=== PATIENT | male | born 1945 | race Caucasian/White ===

== ENCOUNTER 2017-04-03 14:09 | Outpatient (CLI) | payer BC ==
--- NOTE | 2017-04-03 15:31 | RAD ---
TWO VIEW CHEST SERIES: COMPARISON: 03/03/12. CLINICAL HISTORY: Preoperative assessment. FINDINGS: There is mild interstitial prominence of the right lower lung zone. No lobar consolidation, effusion , or discrete pneumothorax. Metallic anchors are present at the proximal right humerus. Partially i opal cervical spine operative change present. IMPRESSION: No acute process identified. POS: [facility]
[2017-04-03 15:57] LABS: #Eosinphils 0.1 thou/uL (0.0-0.7); #Lymphocytes 1.6 thou/uL (1.20-3.40); #Monocytes 0.5 thou/uL (0.11-0.59); #Neutrophils 3.5 thou/uL (1.40-6.50); %Basophils 0.8 % (0.0-1.0); %Eosinophils 1.3 % (0.0-10.0); %Lymphocytes 27.7 % (21.0-51.0); %Monocytes 8.6 % (0.0-10.0); %Neutrophils 61.6 % (42.0-75.0); Hemoglobin 13.9 g/dL (14.0-18.0); Mean Corpuscular HGB CONC 32.4 g/dL (32.0-36.0); Mean Corpuscular Hemoglobin 31.7 pg (27.0-31.0); Mean Corpuscular Volume 97.6 fl (80.0-94.0); Mean Platelet Volume 7.5 fL (7.4-10.4); Platelet Count 222 thou/uL (130-400); RBC Distribution Width 11.6 % (11.5-14.5); White Blood Cell (WBC) Count 5.6 thou/uL (4.8-10.8)
[2017-04-03 16:04] LABS: PTT 28.9 SEC (22.9-36.1); Prothrombin Time 12.9 SEC (12.0-14.7)
[2017-04-03 16:13] LABS: Bilirubin Negative (Negative); Blood, Urine Negative (Negative); Clarity CLEAR (Clear); Glucose, Urine (Dipstick) Negative (Negative); Leukocyte Negative (Negative); Nitrite Negative (Negative); Protein, Urine (Dipstick) Negative (Neg-Trace); Urobilinogen 0.2 mg/dL (0.2-1.0)
[2017-04-03 16:15] LABS: Bacteria/HPF None Seen HPF (None Seen); Hyaline Casts/LPF 0-3 HYALINE CAST LPF (0-3 Hyaline); Squamous Epithelial None Seen HPF (0-3); WBC/HPF 0-3 HPF (0-3)
[2017-04-03 16:22] LABS: Anion Gap 15 mmol/L (10-20); BUN (Urea Nitrogen) 28 mg/dL (8.4-25.7); Calc. Creatinine Clearance 0 mL/min (70-130); Calcium 9.7 mg/dL (7.8-10.44); Carbon Dioxide 26 mmol/L (23-31); Chloride 103 mmol/L (98-107); Estimated GFR-MDRD Greater than 90; Glucose 102 mg/dL (83-110); Potassium 4.5 mmol/L (3.5-5.1); Sodium 139 mmol/L (136-145)
--- NOTE | 2017-04-06 20:19 | EKG ---
Test Reason : Blood Pressure : / mmHG Vent. Rate : 054 BPM Atrial Rate : 054 BPM P-R Int : 220 ms QRS Dur : 094 ms QT Int : 428 ms P-R-T Axes : 057 -22 049 degrees QTc Int : 405 ms Sinus bradycardia with 1st degree A-V block Cannot rule out Anterior infarct (cited on or before 24-OCT-2013) Abnormal ECG When compared with ECG of 24-OCT-2013 11:47, No significant change was found Confirmed by CHARMAINE SAUCEDO, SZay ([id number]) on 04/06/2017 8:18:34 PM Referred By: IRENE Confirmed By:DR. Jill MONTANO MD
== END 2017-04-03 14:10 | disposition home or self-care (01) ==
LOC: LABBT 14:09
PROVIDERS: ATTEND Orthopaedic Surgery
DX: Z01.818 Encounter for other preprocedural examination (principal); S83.282D Other tear of lateral meniscus, current injury, left knee, subsequent encounter; S83.242D Other tear of medial meniscus, current injury, left knee, subsequent encounter
CPT/HCPCS: 71046; 80048; 81001; 85025; 85610; 85730; 86850; 86900; 86901; 93005; 93010

== ENCOUNTER 2017-04-10 06:36 | Day surgery (SDC) | payer BC ==
[2017-04-03 14:27] VITALS: BMI 27.2
[2017-04-10] MEDS ORDERED: Diprivan 20 ML ONE (07:33)
[2017-04-10] MEDS ORDERED: Fentanyl 100 MCG/2 ML VIAL ONE (08:07)
[2017-04-10] MEDS ORDERED: Midazolam HCl 2 mg/2 ml Vial ONE (08:07)
[2017-04-10] MEDS ORDERED: CEFAZOLIN/Water 2 GM/20 ML SYRINGE ONE (08:24)
[2017-04-10] MEDS ORDERED: Fentanyl 250 MCG/5 ML VIAL ONE (08:26)
[2017-04-10] MEDS ORDERED: HYDROcodone/Acetaminophen 5/325 mg Tablet ONE (10:55)
--- NOTE | 2017-04-10 12:22 | OP ---
PREOPERATIVE DIAGNOSIS: Medial and lateral meniscus tear. POSTOPERATIVE DIAGNOSIS: Medial and lateral meniscus tear. SURGEON: Nima Dyson M.D. ANESTHESIA: General. BLOOD LOSS: Minimal. SPECIMEN: None. DRAINS: None. COMPLICATIONS: None. TOURNIQUET: Not used. 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 Double bucket handle lateral meniscus tear, longitudinal tear posterior medial meniscus. DESCRIPTION OF PROCEDURE: Scope was placed in the lateral portal and probe was placed in medial port al. Medial meniscus was addressed first and removed the meniscus using basket forceps, just the torn portion was removed and smoothed using a 4-0 full radius resector. Meniscus was then probed and fou nd to be stable. Intercondylar notch was examined and ACL was found to be somewhat flat, but there w as an intact ACL tissue. Lateral compartment was examined. He had a double bucket handle tear. Thi s was amputated at the posterior horn first and then mostly transected through the central portion of the meniscus. I then removed the piece just performed. Again, a second time there was a double buc ket handle tear leaving almost always lateral meniscus removed. I then shaved the remainder of the m eniscus and meniscus was probed, and there was just a small rim which was stable. The knee was then drained. Sterile dressings applied.
[2017-04-10] MEDS ORDERED: Bupivacaine HCl 0.5%/Epinephrine 1:200,000/PF 30 ml Vial ONE (13:47)
[2017-04-10] MEDS ORDERED: Lidocaine 2% w/Epinephrine 1:200K 20 ML VIAL ONE (13:47)
[2017-04-10] MEDS ORDERED: Bupivacaine PF 0.5% 30 ML VIAL ONE (13:47)
== END 2017-04-10 11:45 | disposition home or self-care (01) ==
LOC: SDC 06:36
PROVIDERS: ATTEND Orthopaedic Surgery
PROC: 0SBD4ZZ Excision of Left Knee Joint, Percutaneous Endoscopic Approach (ICD-10-PCS; principal; 2017-04-10)
DX: S83.242A Other tear of medial meniscus, current injury, left knee, initial encounter (principal); S83.252A Bucket-handle tear of lateral meniscus, current injury, left knee, initial encounter; M94.262 Chondromalacia, left knee; I10 Essential (primary) hypertension; Y92.814 Boat as the place of occurrence of the external cause; Z79.82 Long term (current) use of aspirin; Z79.899 Other long term (current) drug therapy; Z98.1 Arthrodesis status; Z98.890 Other specified postprocedural states
CPT/HCPCS: G8978-GP-CJ; G8979-GP-CJ; G8980-GP-CJ; J2250; J2704; J3010